=== PATIENT | male | born 2000 | race Caucasian/White ===

== ENCOUNTER 2019-01-04 01:34 | Emergency (ER) | payer OTHER ==
[~2019-01-04] VITALS: Ht 177.8 cm; Wt 72.6 kg
[2019-01-04] MEDS ORDERED: augmentin PO (03:57)
[2019-01-04] MEDS ORDERED: CORTISPORIN EAR10 M1 OPHT (03:57)
[2019-01-04] MEDS ORDERED: INTESTINEX680 M1 PO (03:59)
== END 2019-01-04 04:12 | disposition home or self-care (01) ==
LOC: ER 01:34
DX: J06.9 Acute upper respiratory infection, unspecified (principal); R50.9 Fever, unspecified

== ENCOUNTER 2019-04-13 13:49 | Emergency (ER) | payer OTHER ==
[~2019-04-13] VITALS: Ht 177.8 cm; Wt 80.7 kg
[~2019-04-13 13:49] MED LIST: CORTISPORIN EAR10 M1 OPHT; INTESTINEX680 M1 PO; augmentin PO
[2019-04-13] MEDS ORDERED: FLONASE16 GM NASAL (15:53)
[2019-04-13] MEDS ORDERED: CLARITIN-D 241 EACH PO (15:53)
== END 2019-04-13 16:21 | disposition home or self-care (01) ==
LOC: ER 13:49
DX: R50.9 Fever, unspecified (principal)